=== PATIENT | male | born 1975 | race Caucasian/White ===

== ENCOUNTER 2020-12-10 20:36 | Emergency (ER) | payer BC ==
[~2020-12-10] VITALS: Ht 172.7 cm; Wt 78.2 kg
[2020-12-10 20:40] VITALS: BP 155/95
[2020-12-10] MEDS ORDERED: LIDOcaine 1% W/epiNEPHrine 1:200,000 10ml vial IJ ONE (21:00)
[2020-12-10] MEDS ORDERED: TETanus/Pertussis (Acell)/Diphther VAC/PF (Tdap-Adult) 0.5ml syringe IMVAC ONE (21:05)
--- NOTE | 2020-12-10 21:26 | NUR ---
Confirmed with [facility] and Dr Aguilar ok to give tetanus, pt had COVID vaccine a week ago. Vaccine given in other arm
== END 2020-12-10 22:02 | disposition home or self-care (01) ==
LOC: ER 20:37
DX: S61.213A Laceration without foreign body of left middle finger without damage to nail, initial encounter (principal); W26.8XXA Contact with other sharp object(s), not elsewhere classified, initial encounter; Y93.89 Activity, other specified; Y92.89 Other specified places as the place of occurrence of the external cause; Y99.8 Other external cause status
CPT/HCPCS: 12001; 90471; 90715; 99283